=== PATIENT | male | born 1985 | race Caucasian/White ===

== ENCOUNTER 2024-03-08 21:17 | Emergency (ER) | payer MEDICAID ==
[~2024-03-08] VITALS: Ht 180.3 cm; Wt 81.6 kg
[2024-03-08 21:28] VITALS: BP_SYST 122; PULSE 126; RESP 18; TEMP 98.9; O2SAT 97
[2024-03-08] MEDS: KETOROLAC TROMETHAMINE 30 MG VIAL IVP ONE (23:00)
[2024-03-08] MEDS ORDERED: IBUP-1971 PO (23:03)
[2024-03-08] MEDS ORDERED: CEPH-548 PO (23:03)
[2024-03-09 01:03] VITALS: BP_SYST 122; PULSE 126; RESP 18; TEMP 98.9; O2SAT 97
== END 2024-03-08 23:25 | disposition home or self-care (01) ==
LOC: SED 21:17
DX: L03.116 Cellulitis of left lower limb (principal); L03.115 Cellulitis of right lower limb; R03.0 Elevated blood-pressure reading, without diagnosis of hypertension
CPT/HCPCS: 99283; 96374; J1885

== ENCOUNTER 2024-03-09 00:17 | Emergency (ER) | payer MEDICAID ==
[~2024-03-09] VITALS: Ht 180.3 cm; Wt 86.2 kg
[~2024-03-09 00:17] MED LIST: CEPH-548 PO; IBUP-1971 PO
[2024-03-09 00:27] VITALS: BP_SYST 159; PULSE 99; RESP 16; TEMP 97.1; O2SAT 100
== END 2024-03-09 01:19 | disposition home or self-care (01) ==
LOC: SED 00:17
DX: M54.50 Low back pain, unspecified (principal); R03.0 Elevated blood-pressure reading, without diagnosis of hypertension; Z79.899 Other long term (current) drug therapy; Z79.2 Long term (current) use of antibiotics
CPT/HCPCS: 99282

== ENCOUNTER 2024-03-11 23:46 | Emergency (ER) | payer MEDICAID ==
[~2024-03-11] VITALS: Ht 180.3 cm; Wt 81.6 kg
[2024-03-12 00:01] VITALS: BP_SYST 143; PULSE 105; RESP 16; TEMP 98.3
[2024-03-12] MEDS ORDERED: BACITRACIN 1 GM OINT TP ONE (00:19)
[2024-03-12] MEDS ORDERED: DOXY100C5 PO (00:21)
[2024-03-12] MEDS: BACITRACIN ZINC 15 GM TOPICAL OINTMENT TP SCH (00:25)
[2024-03-12 00:26] VITALS: BP_SYST 138; PULSE 103; RESP 16; TEMP 98
== END 2024-03-12 00:25 | disposition home or self-care (01) ==
LOC: SED 23:46
DX: L03.116 Cellulitis of left lower limb (principal); L03.115 Cellulitis of right lower limb; Z79.899 Other long term (current) drug therapy
CPT/HCPCS: 99283

== ENCOUNTER 2024-06-25 13:27 | Emergency (ER) | payer MEDICAID ==
[~2024-06-25] VITALS: Ht 180.3 cm; Wt 77.1 kg
[~2024-06-25 13:27] MED LIST changes: +DOXY100C5 PO
[2024-06-25 13:29] VITALS: BP_SYST 128; PULSE 133; RESP 18; TEMP 98.9; O2SAT 99
[2024-06-25 14:11] LABS: INR 1.1 (0.80-1.20); PROTHROMBIN TIME 11.5 SECS (9.5-12.5)
[2024-06-25 14:12] LABS: HEMATOCRIT 43.2 % (36-54); HEMOGLOBIN 15.1 g/dL (14.0-18.0); LYMPHOCYTES % (AUTO) 23.5 % (20.5-51.5); MEAN CORPUSCULAR HEMOGLOBIN 31 pg (27-31); MEAN CORPUSCULAR HGB CONC 35 % (32-36); MEAN CORPUSCULAR VOLUME 89 fL (79.0-98.0); MONOCYTES % (AUTO) 8.3 % (1.7-9.3); NEUTROPHILS % (AUTO) 66.8 % (40.0-70.0); PLATELET COUNT (AUTO) 238 K/uL (130-430); RED BLOOD CELL COUNT(AUTO) 4.83 MIL/uL (4.2-6.2); RED CELL DISTRIBUTION WIDTH 13.3 % (9.0-15.0); WHITE BLOOD COUNT (AUTO) 9.3 K/uL (4.8-10.8)
[2024-06-25 14:13] LABS: BASOPHILS % (AUTO) 0.4 % (0.0-2.0); EOSINOPHILS # (AUTO) 0.1 K/uL (0.0-0.4); LYMPHOCYTES # (AUTO) 2.2 K/uL (1.0-5.5); MONOCYTES # (AUTO) 0.8 K/uL (0.0-1.0); NEUTROPHILS # (AUTO) 6.2 K/uL (1.8-7.7)
[2024-06-25 14:16] LABS: ALBUMIN 3.8 g/dL (3.4-4.8); BILIRUBIN,DIRECT 0.2 mg/dL (0.0-0.3); CALCIUM 8.7 mg/dL (8.4-11.0); CREATININE 1.22 mg/dL (0.55-1.30); POTASSIUM 3.2 mmol/L (3.5-5.1); TOTAL BILIRUBIN 0.9 mg/dL (0.0-1.0); TOTAL PROTEIN, SERUM 7.4 g/dL (6.4-8.3)
[2024-06-25] MEDS: ACETAMINOPHEN 500 MG TABLET PO ONE (14:51)
[2024-06-25] MEDS: POTASSIUM CHLORIDE 20 MEQ/PKT PACKET PO ONE (18:13)
[2024-06-25 18:15] VITALS: BP_SYST 139; PULSE 84; RESP 16; TEMP 97.6; O2SAT 98
== END 2024-06-25 18:17 | disposition home or self-care (01) ==
LOC: SED 13:27
DX: S20.219A Contusion of unspecified front wall of thorax, initial encounter (principal); N28.1 Cyst of kidney, acquired; E87.6 Hypokalemia; R00.0 Tachycardia, unspecified; R10.9 Unspecified abdominal pain; Z79.899 Other long term (current) drug therapy; Z79.2 Long term (current) use of antibiotics; V19.88XA Pedal cyclist (driver) (passenger) injured in other specified transport accidents, initial encounter; Y93.89 Activity, other specified; Y92.89 Other specified places as the place of occurrence of the external cause; Y99.8 Other external cause status
CPT/HCPCS: 99285; 71260; 80076; 80048; 82150; 82550; 83690; 85025; 85610; 85730; 84484; 36415; 93005; 74177; Q9967